=== PATIENT | male | born 1945 | race Caucasian/White ===

== ENCOUNTER 2020-11-11 11:04 | Emergency (ER) | payer MEDICARE ==
[~2020-11-11] VITALS: Ht 172.7 cm; Wt 72.6 kg
--- NOTE | ~2020-11-11 | EMS ---
[address] [address] EMS Patient Care Report Name: KUSUM SANTO Room #: DEP TIMOTEO Persaud#: [id number] Admission: 11/11/20 Attend Phys: Discharge: 11/11/20 Date of : 41 Report #: [id number] THIS REPORT FOR: //name// Report Transmitted: 11/13/2020 13:23 EMS Care Summary [place], [place]/[facility] Incident [phone] @ 11/11/2020 10:31 Incident Location [address] [address] Patient KUSUM SANTO Male, 75 Years 1945 Patient Address [address] [id number] Patient History Hypertension (HTN), Patient Allergies No known allergies, Patient Medications Hydrochlorothiazide (Hctz), Lisinopril, Chief Complaint HTN Disposition Transported No Lights/[place] Dispatch Reason Sick Person Transported To [facility] Narrative M41 DISPATCHED TO A SICK PERSON. M41 AOS AND AND FOUND A MALE PT IN HIS LIVING ROOM. PT STATES THAT HE TOOK HIS BP THIS MORNING AND NOTICED THAT IT WAS OVER 200 SYSTOLIC. PT STATES HE TOOK [facility] [address] [place] [address] EMS Patient Care Report Name: KUSUM SANTO Room #: DEP Cori#: [id number] Admission: 11/11/20 Attend Phys: Discharge: 11/11/20 Date of : 41 Report #: [id number] HIS BP MEDICATION THIS MORNING AFTER HE TOOK IT BUT IS CONCERNED ABOUT HIS BP AND WISHES TO BE TRANSPORTED TO THE HOSPITAL. PT HAS NO COMPLAINTS OF PAIN. PT DENIES CP, SOA, DIZZINESS, NV, ABD PAIN. PTS MEDS ALLERGIES AND HX OBTAINED. PT WALKED TO THE COT WITH ASSISTANCE AND PT MOVED TO THE AMBULANCE. VITALS OBTAINED. 4 LEAD OBTAINED. BGA OBTAINED. IV ACCESS OBTAINED. M[address] [facility]. EN ROUTE PT REMAINED STABLE. REPORT GIVEN TO LILLIE TRENT. SIGNATURES OBTAINED. TRANSFER OF CARE TOOK PLACE. M41 IN SERVICE. LANA [employer] Initial Vitals @10:42P: 109,BP: 197/92,CO: 2,SpO2: 98, @10:50P: 102,BP: 186/79,SpO2: 97, @10:45P: 104,CO: 2,SpO2: 98, @10:45SpO2: 97,NV Suspected: false @10:38P: 107,R: 18,BP: 208/99,Pain: 0/10,GCS: 15,Glucose: 219,CO: 1,SpO2: 99,Revised Trauma: 12, Assessments @10:50MENTAL:Person Oriented,Time Oriented,Event Oriented,Place Oriented,SKIN:HEENT:Head/Face: No Abnormalities,Neck/Airway: No Abnormalities,LUNG SOUNDS:General: No Abnormalities,ABDOMEN:General: No Abnormalities,PELVIS//GI:No Abnormalities,EXTREMITIES:Capillary Refill: Right Upper: < 2 Sec,Left Arm: No Abnormalities,Right Arm: No Abnormalities,Left Leg: No Abnormalities,Right Leg: No Abnormalities,PULSE:Radial: 2+ Normal,NEURO:No Abnormalities, Impression Hypertension Procedures @10:38ALS AssessmentResponse: UnchangedSucceeded@10:45Saline Lock 8cc (20 ga) Site: Antecubital-LeftResponse: UnchangedSucceeded@10:393-Lead ECGResponse: UnchangedSucceeded Timeline [address] [address] EMS Patient Care Report Name: KUSUM SANTO Room #: [facility] Cori#: [id number] Admission: 11/11/20 Attend Phys: Discharge: 11/11/20 Date of : 41 Report #: [id number] 10:30,Call Received 10:30,Dispatch Notified 10:31,Dispatched 10:32,En Route 10:37,On Scene 10:38,At Patient 10:38,ALS Assessment,Response: UnchangedSucceeded, 10:38,BP: 208/99 M,PULSE: 107,RR: 18 R,SPO2: 99 Ox,ETCO2: ,B,PAIN: 0,GCS: 15, 10:39,3-Lead ECG,Response: UnchangedSucceeded, 10:42,BP: 197/92 M,PULSE: 109,RR: R,SPO2: 98 Ox,ETCO2: ,BG: ,PAIN: ,GCS: , 10:45,Saline Lock 8cc 20 ga Site: Antecubital-Left,Response: UnchangedSucceeded, 10:45,BP: / M,PULSE: 104,RR: R,SPO2: 98 Ox,ETCO2: ,BG: ,PAIN: ,GCS: , 10:45,BP: / M,PULSE: ,RR: R,SPO2: 97 Ox,ETCO2: ,BG: ,PAIN: ,GCS: , 10:47,Depart Scene 10:50,BP: 186/79 M,PULSE: 102,RR: R,SPO2: 97 Ox,ETCO2: ,BG: ,PAIN: ,GCS: , 11:00,At Destination 11:08,Call Closed Disclaimer v1.1 Copyright 2020 [employer] This EMS Care Summary contains data elements from the applicable legal record (which may be displayed differently). It is designed to provide pertinent information for the following purposes: continuity of care, clinical quality, and state data reporting. The complete legal record is available to ED staff and administrators of the receiving hospital in [employer]'s Patient Tracker. All data is provided "as is."
[2020-11-11] MEDS ORDERED: PRILOSEC OTC20 MG PO (11:12)
[2020-11-11] MEDS ORDERED: LISINOPRIL10 MG PO (11:12)
[2020-11-11 11:32] LABS: ABSOLUTE NEUTROPHILS 2.8 thou/uL (1.4-8.2); BASOPHILS 0.6 % (0.0-2.0); HEMATOCRIT 35.4 % (42.0-52.0); HEMOGLOBIN 11.9 gm/dL (14.0-18.0); LYMPHOCYTES 29.8 % (24.0-44.0); MCH 29.8 pg (26.0-34.0); MCHC 33.6 g/dL (28.0-37.0); MCV 88.8 fL (80.0-100.0); PLATELET COUNT 123 thou/uL (150-400); POLYS 57.6 % (36.0-66.0); RBC 3.99 mil/uL (4.50-6.00); RDW 13.5 % (10.5-14.5); WBC 4.9 thou/uL (4.0-11.0)
[2020-11-11 11:53] LABS: ALBUMIN 3.9 g/dL (3.4-5.0); ANION GAP 10 mmol/L (7-16); BUN 16 mg/dL (7-18); CALCIUM 8.5 mg/dL (8.5-10.1); CHLORIDE 104 mmol/L (98-107); CO2 27 mmol/L (21-32); CREATININE 1.1 mg/dL (0.7-1.3); GLUCOSE 176 mg/dL (74-106); SGOT 20 U/L (15-37); SGPT 23 U/L (30-65); SODIUM 141 mmol/L (136-145); TOTAL BILIRUBIN 0.3 mg/dL (0.2-1.0); TOTAL PROTEIN 6.5 g/dL (6.4-8.2); TROPONIN-I <0.06 ng/mL (<0.06)
[2020-11-11 11:56] LABS: POTASSIUM 2.9 mmol/L (3.5-5.1)
[2020-11-11] MEDS ORDERED: KLOR-CON 1010 MEQ PO (13:29)
[2020-11-11 13:30] VITALS: BP 169/75
--- NOTE | 2020-11-12 09:21 | EKG ---
[address] [address] ELECTROCARDIOGRAM REPORT Name: KUSUM SANTO Room #: [facility]P [facility] [id number] Admission: 11/11/20 Attend Phys: Discharge: 11/11/20 Date of : 41 Report #: [id number] [facility] ED Test Date: 2020-11-11 Test Time: 11:28:58 Pat Name: KUSUM SANTO Department: Room: Gender: M Director Of Hotel: SHEILA : 1945 Requested By: Santo Lancaster Order Number: [id number] MD: Pancho Givens Measurements Intervals [place] Rate: 89 P: -19 MA: 162 QRS: 24 QRSD: 101 T: 45 QT: 397 QTc: 484 Interpretive Statements Sinus rhythm Borderline prolonged QT interval No previous ECG available for comparison Electronically Signed On 11-12-2020 9:21:51 CDT by Pancho Givens [email or web address] <ELECTRONICALLY SIGNED> By: Pancho Givens MD, [facility] 11/12/20 0921 [id number] [id number] Pancho Givens MD, FACC /EPI
== END 2020-11-11 13:30 | disposition home or self-care (01) ==
LOC: ER 11:04
PROVIDERS: Emergency Medicine
DX: I10 Essential (primary) hypertension (principal); E87.6 Hypokalemia; Z79.899 Other long term (current) drug therapy; Z88.6 Allergy status to analgesic agent